=== PATIENT | male | born 2000 | race Hispanic/Latino ===

== ENCOUNTER 2024-06-04 16:19 | Observation (INO) | payer SELFPAY ==
[~2024-06-04] VITALS: Ht 180.3 cm; Wt 77.1 kg
[2024-06-04 17:15] VITALS: TEMP 99.2
[2024-06-04 17:47] LABS: BASOPHILS % 0.3 % (0.0-1.0); EOSINOPHILS % 0.3 % (0.0-6.0); HEMATOCRIT 43.7 % (38.2-49.6); HEMOGLOBIN 14.4 g/dL (14.0-18.0); LYMPHOCYTES % 7.3 % (18.0-39.1); MEAN CORPUSCULAR HEMOGLOBIN 28.8 pg (28-32); MEAN CORPUSCULAR VOLUME 87.4 fL (81-99); MONOCYTES # (AUTO) 1.2 (0.2-0.8); MONOCYTES % 8.3 % (4.4-11.3); NEUTROPHILS # (AUTO) 11.7 (2.1-6.9); NEUTROPHILS % 83.5 % (38.7-80.0); PLATELET COUNT 202 x10e3/uL (140-360); RED CELL DISTRIBUTION WIDTH 12.6 % (11.7-14.4); WHITE BLOOD COUNT 14.05 x10e3/uL (4.8-10.8)
[2024-06-04 18:03] LABS: ALBUMIN 4.5 g/dL (3.5-5.0); ALBUMIN/GLOBULIN RATIO 1.2 (0.8-2.0); ANION GAP 17.6 mmol/L (8-16); BILIRUBIN,TOTAL 1.3 mg/dL (0.2-1.2); CALCIUM 9.5 mg/dL (8.4-10.2); CREATININE, SERUM 1.1 mg/dL (0.72-1.25); POTASSIUM 3.6 mmol/L (3.5-5.1); TOTAL PROTEIN 8.3 g/dL (6.5-8.1)
[2024-06-04] MEDS: SODIUM CHLORIDE 0.9% 1000ML 1,000 ML IV STA (18:18)
[2024-06-04] MEDS: ONDANSETRON HCL INJ 2MG/ML 2ML 2 MG/ML VIAL IV STA (18:18)
[2024-06-04] MEDS: Morphine 4mg INJECTION 4 MG/ML INJ IV STA (18:19)
[2024-06-04 18:23] LABS: BILIRUBIN,URINE NEGATIVE (NEGATIVE); CLARITY,URINE CLEAR (CLEAR); COLOR,URINE YELLOW (YELLOW); GLUCOSE, URINE NEGATIVE (NEGATIVE); KETONES,URINE >=160 (NEGATIVE); LEUKOCYTE ESTERASE ,URINE NEGATIVE (NEGATIVE); NITRITE,URINE NEGATIVE (NEGATIVE); PH,URINE 6 (5 - 7); PROTEIN,URINE DIPSTICK NEGATIVE (NEGATIVE); URINE UROBILINOGEN 0.2 mg/dL (0.2 - 1)
[2024-06-04 18:46] LABS: RBC,URINE 0-5 /HPF (0-5); WBC,URINE (MAN) 0-5 /HPF (0-5)
[2024-06-04 18:47] LABS: BACTERIA,URINE FEW /HPF
[2024-06-04] MEDS ORDERED: IOPAMIDOL 370 MG/ML 100 ML INFUS..BTL INJ ONE (19:09)
[2024-06-04] MEDS ORDERED: ONDANSETRON HCL INJ 2MG/ML 2ML 2 MG/ML VIAL IV PRN (21:45)
[2024-06-04] MEDS ORDERED: Morphine 4mg INJECTION 4 MG/ML INJ IV PRN (21:45)
[2024-06-04 22:30] VITALS: PULSE 80; RESP 16
[2024-06-04] MEDS: SODIUM CHLORIDE 0.9% 1000ML 1,000 ML IV SCH (22:43)
[2024-06-04] MEDS ORDERED: BACTRIM DS TAB1 EACH PO (23:12)
[2024-06-04] MEDS ORDERED: IBUPROFEN800 MG PO (23:12)
[2024-06-04 23:31] VITALS: BP 137/65; PULSE 78; RESP 16; TEMP 98.8; O2SAT 99
[2024-06-04 23:33] VITALS: BP 137/65; PULSE 78; RESP 16; TEMP 98.8; O2SAT 99
[2024-06-04 23:34] VITALS: BP 137/65; PULSE 78; RESP 16; TEMP 98.8; O2SAT 99
[2024-06-04 23:37] VITALS: BP 137/65; PULSE 78; RESP 16; TEMP 98.8; O2SAT 99
[2024-06-05] VITALS (8 sets, daily range): BP systolic 124–137; BP diastolic 50–67; PULSE 68–113; RESP 16–22; TEMP 97.9–99.6; O2SAT 90–99
[2024-06-05 05:44] LABS: BASOPHILS % 0.3 % (0.0-1.0); EOSINOPHILS # (AUTO) 0.1 (0.0-0.4); EOSINOPHILS % 0.5 % (0.0-6.0); HEMATOCRIT 38.2 % (38.2-49.6); HEMOGLOBIN 12.5 g/dL (14.0-18.0); LYMPHOCYTES # (AUTO) 1.6 (1.0-3.2); LYMPHOCYTES % 16.2 % (18.0-39.1); MEAN CORPUSCULAR HGB CONC 32.7 g/dL (31-35); MEAN CORPUSCULAR VOLUME 88.6 fL (81-99); MONOCYTES # (AUTO) 1.1 (0.2-0.8); MONOCYTES % 11.1 % (4.4-11.3); NEUTROPHILS # (AUTO) 7.1 (2.1-6.9); NEUTROPHILS % 71.6 % (38.7-80.0); PLATELET COUNT 173 x10e3/uL (140-360); RED BLOOD COUNT 4.31 x10e6/uL (4.3-5.7); RED CELL DISTRIBUTION WIDTH 12.6 % (11.7-14.4); WHITE BLOOD COUNT 9.84 x10e3/uL (4.8-10.8)
[2024-06-05 06:11] LABS: ALBUMIN 3.6 g/dL (3.5-5.0); ALBUMIN/GLOBULIN RATIO 1.2 (0.8-2.0); BILIRUBIN,TOTAL 1.4 mg/dL (0.2-1.2); CALCIUM 8.9 mg/dL (8.4-10.2); CREATININE, SERUM 1.42 mg/dL (0.72-1.25); TOTAL PROTEIN 6.6 g/dL (6.5-8.1)
[2024-06-05] MEDS ORDERED: ACETAMINOPHEN 1000 MG/100 ML 100 ML IV ONE (09:41)
[2024-06-05] MEDS ORDERED: SUGAMMADEX SODIUM 200 MG/2 ML VIAL IV ONE ×2 (09:42→11:32)
[2024-06-05] MEDS ORDERED: BUPIVACAINE 0.5%/EPI 30 ML SDV INJ ONE (10:30)
[2024-06-05] MEDS: ALBUTEROL/IPRATROPIUM 3 ML NEB ONE ×2 (12:25→13:14)
[2024-06-05] MEDS ORDERED: HYDRALAZINE HCL 20 MG/ML VIAL IV PRN (13:30)
[2024-06-05] MEDS ORDERED: LEVALBUTEROL HCL SOLN NEBU 0.63 MG/3 ML NEB INH PRN (13:45)
[2024-06-05] MEDS ORDERED: IPRATROPIUM BROMIDE 0.02% 2.5 ML NEB NEB PRN (13:45)
[2024-06-05] MEDS: GUAIFENESIN/CODEINE 5 ML LIQD PO PRN (16:22)
[2024-06-05] MEDS: ACETAMINOPHEN 325 MG TAB PO PRN (16:28)
[2024-06-05] MEDS: BUDESONIDE/FORMOTEROL 160/4.5MCG INHALER INH SCH (20:08)
[2024-06-06] VITALS: BP 131/55; PULSE 67; RESP 16; TEMP 98.2; O2SAT 96
[2024-06-06 04:00] VITALS: BP 127/65; PULSE 63; RESP 17; TEMP 98.1; O2SAT 99
[2024-06-06 06:30] LABS: BASOPHILS % 0.3 % (0.0-1.0); EOSINOPHILS % 0.2 % (0.0-6.0); HEMATOCRIT 40.2 % (38.2-49.6); HEMOGLOBIN 12.6 g/dL (14.0-18.0); LYMPHOCYTES # (AUTO) 1.3 (1.0-3.2); MEAN CORPUSCULAR HEMOGLOBIN 28.3 pg (28-32); MEAN CORPUSCULAR HGB CONC 31.3 g/dL (31-35); MEAN CORPUSCULAR VOLUME 90.1 fL (81-99); MONOCYTES # (AUTO) 0.9 (0.2-0.8); MONOCYTES % 9.1 % (4.4-11.3); NEUTROPHILS # (AUTO) 7.7 (2.1-6.9); PLATELET COUNT 176 x10e3/uL (140-360); RED BLOOD COUNT 4.46 x10e6/uL (4.3-5.7); RED CELL DISTRIBUTION WIDTH 12.5 % (11.7-14.4); WHITE BLOOD COUNT 9.93 x10e3/uL (4.8-10.8)
[2024-06-06 06:54] LABS: ALBUMIN 3.4 g/dL (3.5-5.0); ANION GAP 10.7 mmol/L (8-16); BILIRUBIN,TOTAL 0.9 mg/dL (0.2-1.2); CALCIUM 8.6 mg/dL (8.4-10.2); CREATININE, SERUM 1.05 mg/dL (0.72-1.25); MAGNESIUM 2.2 MG/DL (1.3-2.1); POTASSIUM 3.7 mmol/L (3.5-5.1); TOTAL PROTEIN 6.7 g/dL (6.5-8.1)
[2024-06-06 07:05] LABS: PHOSPHORUS 3.8 MG/DL (2.3-4.7)
[2024-06-06 07:59] VITALS: PULSE 81; RESP 18; O2SAT 99
[2024-06-06 08:25] VITALS: BP 133/61; PULSE 82; RESP 19; TEMP 98.4; O2SAT 99
[2024-06-06] MEDS ORDERED: ONDANSETRON ODT4 MG PO (09:13)
[2024-06-06] MEDS ORDERED: ULTRAM 50MG50 MG PO (09:13)
[2024-06-06] MEDS ORDERED: ACETAMINOPHEN325 M1 PO (09:13)
[2024-06-06] MEDS ORDERED: SYMBICORT 16010.2 GM INH (09:13)
[2024-06-06 10:11] VITALS: BP 133/61; PULSE 82; RESP 19; TEMP 98.4; O2SAT 99
== END 2024-06-06 11:50 | disposition home or self-care (01) ==
LOC: ER 18:05 → ERHOLD 21:36 → MED/SURG2 22:55
PROVIDERS: ADMIT Internal Medicine; ATTEND Internal Medicine
DX: K35.80 Unspecified acute appendicitis (principal); R06.03 Acute respiratory distress; J45.909 Unspecified asthma, uncomplicated; E86.0 Dehydration
CPT/HCPCS: 36415 ×3; 44970; 74177; 80053 ×3; 81001; 83690; 83735; 84100; 85025 ×3; 88304; 94640; 94664; 94799 ×2; 99252; 99284; G0378 ×3; J0131; J2270; J2405; J2543 ×3; J7030; Q9967